=== PATIENT | male | born 2000 | race Caucasian/White ===

== ENCOUNTER 2023-01-10 02:00 | Emergency (ER) | payer SELFPAY ==
[2023-01-10] MEDS ORDERED: Ondansetron 4 MG Tab.DIS PO ONE (03:21)
== END 2023-01-10 03:38 | disposition home or self-care (01) ==
LOC: JP.ED 02:00
DX: F10.920 Alcohol use, unspecified with intoxication, uncomplicated (principal); Y90.6 Blood alcohol level of 120-199 mg/100 ml
CPT/HCPCS: 36415; 80307; 99284; Q0162